=== PATIENT | male | born 1950 | race American Indian/Alaskan Native ===

== ENCOUNTER 2018-10-04 12:07 | Inpatient (IN) | payer MEDICARE ==
--- NOTE | 2018-10-04 12:26 | Emergency Department Report ---
HPI - General Time Seen by Provider: 10/04/18 12:13 - HPI HPI: Room 23 The patient is a 68-year-old male presenting with chief complaint of altered mental status. The patient states his fiance panic after he mentioned seen "little kids" running around the house. Patient attributes the hallucination to him just waking up. Patient denies headache, chest pain shortness breath nausea or vomiting. The fiance is currently not at bedside. Patient states approximately one week ago he was diagnosed with a PE at [facility] and started on anticoagulation the name of which he cannot recall Location: Mental state Duration: [See above] Quality: [See above] Severity: [See above] Modifying factors: [see above] Context: [see above] Mode of transportation: [not driving] ED Past Medical Hx - Past Medical History Hx Pulmonary Embolism: Yes Hx Arthritis: Yes (gout) - Surgical History Past Surgical History?: No - Family History Family history: no significant - Social History Smoking Status: Never Smoker Substance Use Type: None ED Review of Systems ROS: Stated complaint: ALTERED MENTAL STATUS Other details as noted in HPI Constitutional: no symptoms reported Eyes: denies: eye pain ENT: denies: throat pain Respiratory: no symptoms reported Cardiovascular: denies: chest pain Endocrine: no symptoms reported Gastrointestinal: denies: abdominal pain Genitourinary: denies: dysuria Musculoskeletal: denies: back pain Neurological: confusion. denies: headache Physical Exam - Physical Exam Physical Exam: GENERAL: The patient is well-developed well-nourished male sitting on stretcher not appearing to be in acute distress. [] HEENT: Normocephalic. Atraumatic. Extraocular motions are intact. Patient has moist mucous membranes. NECK: Supple. No meningitic signs are noted. Trachea midline CHEST/LUNGS: Clear to auscultation. There is no respiratory distress noted. HEART/CARDIOVASCULAR: Regular. There is tachycardia. There is no gallop rub or murmur. ABDOMEN: Abdomen is soft, nontender. Patient has normal bowel sounds. There is no abdominal distention. SKIN: There is no rash. There is no edema. There is no diaphoresis. NEURO: The patient is awake, alert, and oriented. The patient is cooperative. The patient has no focal neurologic deficits. The patient has normal speech. Cranial nerves II through XII grossly intact, no drift MUSCULOSKELETAL: There is no evidence of acute injury. ED Medical Decision Making - Lab Data Result diagrams: 10/04/18 12:28 10/04/18 12:28 Laboratory Tests 10/04/18 10/04/18 10/04/18 12:16 12:28 12:28 WBC 17.9 H RBC 3.85 Hgb 10.7 L Hct 33.1 L MCV 86 MCH 28 MCHC 33 RDW 19.9 H Plt Count 445 H Lymph % (Auto) 5.3 L [place] % (Auto) 6.2 Eos % (Auto) 0.1 Baso % (Auto) 0.5 Lymph # 1.0 L [place] # 1.1 H Eos # 0.0 Baso # 0.1 Seg Neutrophils % 87.9 H Seg Neutrophils # 15.8 H PT 15.5 H INR 1.16 H APTT 39.5 H Sodium Potassium Chloride Carbon Dioxide Anion Gap BUN Creatinine Estimated GFR BUN/Creatinine Ratio Glucose POC Glucose 78 Lactic Acid Calcium Total Bilirubin AST ALT Alkaline Phosphatase Ammonia Total Creatine Kinase CK-MB (CK-2) CK-MB (CK-2) Rel Index Troponin T Total Protein Albumin Albumin/Globulin Ratio TSH Free T4 Urine Color Urine Turbidity Urine pH Ur Specific Cecil Urine Protein Urine Glucose (UA) Urine Ketones Urine Blood Urine Nitrite Urine Bilirubin Urine Urobilinogen Ur Leukocyte Esterase Urine WBC (Auto) Urine RBC (Auto) U Epithel Cells (Auto) Urine Mucus 10/04/18 10/04/18 10/04/18 12:28 12:28 12:28 WBC RBC Hgb Hct MCV MCH MCHC RDW Plt Count Lymph % (Auto) [place] % (Auto) Eos % (Auto) Baso % (Auto) Lymph # [place] # Eos # Baso # Seg Neutrophils % Seg Neutrophils # PT INR APTT Sodium 134 L Potassium 4.4 Chloride 95.3 L Carbon Dioxide 21 L Anion Gap 22 BUN 18 Creatinine 1.3 Estimated GFR > 60 BUN/Creatinine Ratio 14 Glucose 150 H POC Glucose Lactic Acid Calcium 9.6 Total Bilirubin 1.60 H AST 15 ALT 19 Alkaline Phosphatase 120 Ammonia 37.0 Total Creatine Kinase 58 CK-MB (CK-2) < 1.0 CK-MB (CK-2) Rel Index 1.7 Troponin T < 0.010 Total Protein 7.3 Albumin 3.6 L Albumin/Globulin Ratio 1.0 TSH 3.650 Free T4 1.18 Urine Color Urine Turbidity Urine pH Ur Specific Cecil Urine Protein Urine Glucose (UA) Urine Ketones Urine Blood Urine Nitrite Urine Bilirubin Urine Urobilinogen Ur Leukocyte Esterase Urine WBC (Auto) Urine RBC (Auto) U Epithel Cells (Auto) Urine Mucus 10/04/18 10/04/18 13:04 Unknown WBC RBC Hgb Hct MCV MCH MCHC RDW Plt Count Lymph % (Auto) [place] % (Auto) Eos % (Auto) Baso % (Auto) Lymph # Wright # Eos # Baso # Seg Neutrophils % Seg Neutrophils # PT INR APTT Sodium Potassium Chloride Carbon Dioxide Anion Gap BUN Creatinine Estimated GFR BUN/Creatinine Ratio Glucose POC Glucose Lactic Acid 2.40 H* Calcium Total Bilirubin AST ALT Alkaline Phosphatase Ammonia Total Creatine Kinase CK-MB (CK-2) CK-MB (CK-2) Rel Index Troponin T Total Protein Albumin Albumin/Globulin Ratio TSH Free T4 Urine Color Yellow Urine Turbidity Clear Urine pH 6.0 Ur Specific [place] 1.011 Urine Protein 30 mg/dl Urine Glucose (UA) Neg Urine Ketones Neg Urine Blood Neg Urine Nitrite Neg Urine Bilirubin Neg Urine Urobilinogen 4.0 Ur Leukocyte Esterase Neg Urine WBC (Auto) 3.0 Urine RBC (Auto) 2.0 U Epithel Cells (Auto) 1.0 Urine Mucus Few - EKG Data -: EKG Interpreted by Me EKG shows normal: sinus rhythm Rate: tachycardia (126 bpm) - EKG Data When compared to previous EKG there are: previous EKG unavailable Interpretation: nonspecific ST-T wave quinn (T-wave inversion in lead 3) - Radiology Data Radiology results: report reviewed (CT head), image reviewed (CT head, chest x- ray) interpreted by me: Chest x-ray-no focal infiltrates, no pneumothorax [facility] [address] [place] [address] Cat Scan Report Signed Patient: AVILA MANN MR#: [id number] : 1950 Acct:[id number] Age/Sex: 68 / M ADM Date: 10/04/18 Loc: ED Attending Dr: Ordering Physician: TABBY POE MD Date of Service: 10/04/18 Procedure(s): CT head/brain wo con Accession Number(s): [id number] cc: TABBY POE MD PROCEDURE: CT HEAD/BRAIN WO CON TECHNIQUE: Computerized tomography of the head was performed without contrast material. HISTORY: altered mental status COMPARISONS: None . FINDINGS: Unenhanced CT of the brain was performed and demonstrates no acute intracranial hemorrhage, extra-axial fluid collection, midline shift or mass effect. The ventricles and basal ci sterns are not effaced. The mastoid air cells and middle ears appear clear. There is no evidence of acute sinusitis. The bony calvarium appears intact. IMPRESSION: No acute intracranial hemorrhage This document is electronically signed by Alexis Price MD., October 04 2018 01:56:39 PM ET Transcribed By: BENJAMIN Dictated By: ALEXIS PRICE MD Electronically Authenticated By: ALEXIS PRICE MD Signed Date/Time: 10/04/18 1358 DD/ 1301 TD/TT: 10/04/18 1301 - Differential Diagnosis pneumonia, pyelonephritis, bacteremia, ICH Critical care attestation.: If time is entered above; I have spent that time in minutes in the direct care of this critically ill patient, excluding procedure time. ED Disposition Clinical Impression: Fever, Altered mental status, Leukocytosis Disposition: DC-09 OP ADMIT IP TO THIS HOSP Is pt being admited?: Yes Does the pt Need Aspirin: No Condition: Fair Referrals: MANJIT SLAUGHTER MD [Primary Care Provider] - 3-5 Days Time of Disposition: 14:42 (hospitalist paged (Dr Ford))
[2018-10-04] MEDS ORDERED: TYLENOL PO ONE (12:30)
[2018-10-04] MEDS ORDERED: NACL 0.9% 1000 ML 1,000 ML IV ONE (12:41)
[2018-10-04 12:59] LABS: Basophils # (Auto) 0.1 K/mm3 (0.0-0.1); Basophils % (Auto) 0.5 % (0.0-1.8); Eosinophils % (Auto) 0.1 % (0.0-4.3); Hematocrit 33.1 % (35.5-45.6); Hemoglobin 10.7 gm/dl (11.8-15.2); Lymphocytes % (Auto) 5.3 % (13.4-35.0); Mean Corpuscular HGB Conc 33 % (32-34); Mean Corpuscular Volume 86 fl (84-94); Monocytes # (Auto) 1.1 K/mm3 (0.0-0.8); Monocytes % (Auto) 6.2 % (0.0-7.3); Platelet Count 445 K/mm3 (140-440); Red Blood Count 3.85 M/mm3 (3.65-5.03); Red Cell Distribution Width 19.9 % (13.2-15.2)
[2018-10-04 13:05] LABS: INR 1.16 (0.87-1.13)
[2018-10-04 13:06] LABS: Partial Thromboplastin Time 39.5 Sec. (24.2-36.6)
[2018-10-04 13:10] LABS: Alanine Aminotransferase 19 units/L (7-56); Albumin 3.6 g/dL (3.9-5); BUN/Creatinine Ratio 14; Blood Urea Nitrogen 18 mg/dL (9-20); Calcium 9.6 mg/dL (8.4-10.2); Hemolysis Index 10
[2018-10-04 13:14] LABS: Creatine Kinase MB < 1.0 ng/mL (0.0-4.0)
[2018-10-04 13:15] LABS: Free T4 (Free Thyroxine) 1.18 ng/dL (0.76-1.46)
[2018-10-04] MEDS ORDERED: ZOSYN/NS 4.5GM/100ML 4.5 GM/100 ML VIAL IV ONE (13:54)
--- NOTE | 2018-10-04 13:58 | Cat Scan Report ---
PROCEDURE: CT HEAD/BRAIN WO CON TECHNIQUE: Computerized tomography of the head was performed without contrast material. HISTORY: altered mental status COMPARISONS: None . FINDINGS: Unenhanced CT of the brain was performed and demonstrates no acute intracranial hemorrhage, extra-axial fluid collection, midline shift or mass effect. The ventricles and basal cisterns are no t effaced. The mastoid air cells and middle ears appear clear. There is no evidence of acute sinusitis. The bony calvarium appears intact. IMPRESSION: No acute intracranial hemorrhage This document is electronically signed by Alexis Price MD., October 04 2018 01:56:39 PM ET
[2018-10-04 14:34] LABS: Bilirubin,Urine NEG (Negative); Blood,Urine NEG (Negative); Color,Urine Yellow (Yellow); Mucus,Urine FEW /HPF
--- NOTE | 2018-10-04 14:40 | History and Physical Report ---
History of Present Illness Chief complaint: He's not talking right, and he is confused History of present illness: 68 YO Male with PE on Therapeutic Anticoagulation, OA, Gout presents to ED for evaluation. Pt is confused and talkative but in unable to provide detailed or coherent history. Pt history provided by the who is at bedside during exam and interview. As per , the patient has become progressively weak and confused over the past 3 days. Pt has experienced difficulty speaking over the past 3 days with persistent symptoms over the same time frame, and was found to have visual hallucinations upon waking from sleep this morning around 0700 hrs. EMS notified, and upon arrival the patient was found to be in distress and transported to [facility]. Pt seen and evaluated in ED. Pt exhibits tangential thin lissett during exam as well as work finding difficulty. Pt found to have symptoms consistent with CVA, RLE Cellulitis, SIRS, Acidosis, and Hyponatremia. Pt is outside therapeutic window for TPA at time of presentation. No reports of fever, chills, CP, Palpitations, NVD, Trauma, ingestion of OTC medications, or recent ill contacts. Pt admitted to telemetry and initiated on CVA protocol. Neurology consulted. Past History Past Medical History: pulmonary embolism, other (gout) Past Surgical History: No surgical history, Other (reviewed) Social history: single. denies: smoking, alcohol abuse, prescription drug abuse Family history: hypertension Medications and Allergies Allergies Allergy/AdvReac Type Severity Reaction Status Date / Time No Known Allergies Allergy Unverified 10/04/18 12:16 Review of Systems ROS unobtainable: due to mental status Exam - Constitutional Vitals: Temp Pulse Resp BP Pulse Ox 101.3 F H 130 H 20 121/66 100 10/04/18 12:27 10/04/18 12:27 10/04/18 12:27 10/04/18 12:27 10/04/18 12:22 General appearance: Present: mild distress - EENT Eyes: Present: PERRL ENT: hearing intact, clear oral mucosa - Neck Neck: Present: supple, normal ROM - Respiratory Respiratory effort: normal Respiratory: bilateral: CTA - Cardiovascular Heart Sounds: Present: S1 & S2. Absent: rub, click - Extremities Extremities: pulses symmetrical, No edema Extremity abnormal: erythema, other (RLE erythema, dolor, ) Peripheral Pulses: within normal limits - Abdominal General gastrointestinal: Present: soft, non-tender, non-distended, normal bowel sounds Male genitourinary: Present: normal - Integumentary Integumentary: Present: clear, warm, dry - Musculoskeletal Musculoskeletal: generalized weakness - Psychiatric Psychiatric: no appropriate mood/affect, no intact judgment & insight, no memory intact - Neurologic Neurologic: CNII-XII intact, no focal deficits, moves all extremities, no gait normal Results - Labs CBC & Chem 7: 10/04/18 12:28 10/04/18 12:28 Labs: Abnormal lab results 10/04/18 10/04/18 10/04/18 Range/Units 12:28 12:28 12:28 WBC 17.9 H (4.5-11.0) K/mm3 Hgb 10.7 L (11.8-15.2) gm/dl Hct 33.1 L (35.5-45.6) % RDW 19.9 H (13.2-15.2) % Plt Count 445 H (140-440) K/mm3 Lymph % (Auto) 5.3 L (13.4-35.0) % Lymph # 1.0 L (1.2-5.4) K/mm3 [place] # 1.1 H (0.0-0.8) K/mm3 Seg Neutrophils % 87.9 H (40.0-70.0) % Seg Neutrophils # 15.8 H (1.8-7.7) K/mm3 PT 15.5 H (12.2-14.9) Sec. INR 1.16 H (0.87-1.13) APTT 39.5 H (24.2-36.6) Sec. Sodium 134 L (137-145) mmol/L Chloride 95.3 L (98-107) mmol/L Carbon Dioxide 21 L (22-30) mmol/L Glucose 150 H (75-100) mg/dL Lactic Acid (0.7-2.0) mmol/L Total Bilirubin 1.60 H (0.1-1.2) mg/dL Albumin 3.6 L (3.9-5) g/dL 10/04/18 Range/Units 13:04 WBC (4.5-11.0) K/mm3 Hgb (11.8-15.2) gm/dl Hct (35.5-45.6) % RDW (13.2-15.2) % Plt Count (140-440) K/mm3 Lymph % (Auto) (13.4-35.0) % Lymph # (1.2-5.4) K/mm3 [place] # (0.0-0.8) K/mm3 Seg Neutrophils % (40.0-70.0) % Seg Neutrophils # (1.8-7.7) K/mm3 PT (12.2-14.9) Sec. INR (0.87-1.13) APTT (24.2-36.6) Sec. Sodium (137-145) mmol/L Chloride (98-107) mmol/L Carbon Dioxide (22-30) mmol/L Glucose (75-100) mg/dL Lactic Acid 2.40 H* (0.7-2.0) mmol/L Total Bilirubin (0.1-1.2) mg/dL Albumin (3.9-5) g/dL Assessment and Plan - Patient Problems (1) CVA (cerebral vascular accident) Current Visit: Yes Status: Acute Qualifiers: Laterality of affected vessel: unspecified Plan to address problem: CVA Protocol: Admit to telemetry, CT head, MRI Brain/MRA Brain, Echo, Carotid doppler, Antiplatelet therapy, PT/OT/ Speech therapy, Case management consult fo r D/C planning/Placement, lipid panel, statin therapy. (2) Cellulitis of right lower extremity Current Visit: Yes Status: Acute Plan to address problem: IV antibiotic therapy, CBC, CMP, (3) SIRS (systemic inflammatory response syndrome) Current Visit: Yes Status: Acute Plan to address problem: IV antibiotic therapy, CBC, CMP, Chest x ray, urinalysis, (4) Pulmonary embolus Current Visit: Yes Status: Acute Qualifiers: Chronicity: unspecified Acute cor pulmonale presence: without acute cor pulmonale Plan to address problem: Continue therapeutic anticoagulation, No respiratory distress at time of exam. (5) Acidosis Current Visit: Yes Status: Acute (6) Hyponatremia syndrome Current Visit: Yes Status: Acute Plan to address problem: IVF resuscitation therapy, repeat bmp in AM. (7) DVT prophylaxis Current Visit: Yes Status: Acute Plan to address problem: SCD to BLE while in bed, continue therapeutic anticoagulation.
--- NOTE | 2018-10-04 15:04 | XRay Report ---
PROCEDURE: XR CHEST 1V AP TECHNIQUE: Chest radiograph single view. HISTORY: fever COMPARISONS: None . FINDINGS: Heart: Magnified due to projection, appear to be upper normal size. Mediastinum/Vessels: Normal. Lungs/Pleural space: Clear.. Bony thorax: No acute osseous abnormality. Life support devices: None. IMPRESSION: No acute cardiopulmonary abnormality. This document is electronically signed by Tarik Urias MD., October 04 2018 03:03:18 PM ET
[2018-10-04] MEDS ORDERED: PHENERGAN PR PRN (15:59)
[2018-10-04] MEDS ORDERED: DULCOLAX PR PRN (15:59)
[2018-10-04] MEDS ORDERED: REGLAN PO PRN (15:59)
[2018-10-04] MEDS ORDERED: MILK OF MAGNESIA PO PRN (15:59)
[2018-10-04] MEDS: LEVAQUIN 750MG/150ML 750 MG/150 ML BAG IV SCH (16:00)
[2018-10-04] MEDS ORDERED: VANCOMYCIN 1,750 MG in NACL 0.9% 500 ML 500 ML IV ONE (16:05)
[2018-10-04] MEDS ORDERED: VANCOMYCIN PHARMACY TO DOSE IV SCH (17:00)
--- NOTE | 2018-10-04 17:11 | Vascular Lab Report ---
PROCEDURE: VL CAROTID DUPLEX BILAT TECHNIQUE: Duplex Doppler ultrasound of the common, internal and external carotid arteries and the v ertebral arteries was performed bilaterally. Santana scale imaging, velocity spectral waveform analysis, and color flow Doppler were employed. HISTORY: stroke COMPARISONS: None . Note: Measurement of carotid stenosis is based on flow velocity values that correlate with the [place] Symptomatic Carotid Endarterectomy Trial (NASCET) based stenosis criteria using the internal carotid artery diameter as the denominator for stenosis calculation. FINDINGS: RIGHT carotid artery: Velocities: ICA PSV: 85 cm/sec ICA End diastolic: 30 cm/sec CCA PSV: 92 cm/sec IC/CC ratio: 0.92 Plaque: None. RIGHT vertebral artery: Antegrade systolic and diastolic flow LEFT carotid artery: Velocities: ICA PSV: 100 cm/sec ICA End diastolic: 35 cm/sec CCA PSV: 100 cm/sec IC/CC ratio: 1 Plaque: none. LEFT vertebral artery: Antegrade systolic and diastolic flow IMPRESSION: 1. RIGHT carotid: No hemodynamically significant internal carotid artery stenosis. 2. LEFT carotid: No hemodynamically significant internal carotid stenosis. 3. Vertebral arteries: Bilaterally antegrade. This document is electronically signed by Mukesh Iraheta MD., October 04 2018 05:09:20 PM ET
[2018-10-04] MEDS ORDERED: LEVAQUIN 750MG/150ML 750 MG/150 ML BAG IV ONE (18:08)
[2018-10-04] MEDS: TYLENOL PO PRN (22:47)
[2018-10-04] MEDS: ZOFRAN IV PRN (22:48)
[2018-10-05] MEDS: TYLENOL PO PRN (05:27)
[2018-10-05] MEDS: ZOFRAN IV PRN (05:27)
[2018-10-05] MEDS ORDERED: ASPIRIN PO SCH (10:00)
--- NOTE | 2018-10-05 11:46 | Progress Note ---
Assessment and Plan / Acute encephalopathy suspected acute CVA on admission cont CVA Protocol: monitor telemetry, ordered CT head, MRI Brain/MRA Brain, Echo, Carotid doppler, Antiplatelet therapy, PT/OT/ Speech therapy, Case management consult for D/C planning/Placement, lipid panel, statin therapy. /Acute gout start on clochicine, po steroid /SIRS (systemic inflammatory response syndrome) likely from acute gout IV antibiotic therapy for now, follow blood cx /h/o Pulmonary embolus Continue therapeutic anticoagulation, No respiratory distress at time of exam. / Hyponatremia IVF resuscitation therapy, repeat bmp in AM. / DVT prophylaxis SCD to BLE while in bed, continue therapeutic anticoagulation. Brief History: This is a 68 YO M with h/o gout, recent dx of PE who presented tot he ED after his found him to be confused and hallucinating. He was admitted with stroke protocol. His mental status now at baseline. c/o b/l knee pain. Subjective Date of service: 10/05/18 Interval history: Patient seen and examined c/o b/l Knee pain tolerating diet PT eval/MRI brain pending Objective - Constitutional Vitals: Vital Signs - 12hr 10/05/18 10/05/18 00:26 04:20 Temperature 99.0 F Pulse Rate 110 H 103 H Respiratory 20 Rate Blood Pressure 148/65 O2 Sat by Pulse 97 Oximetry General appearance: Present: no acute distress, well-nourished - EENT Eyes: PERRL, EOM intact ENT: hearing intact, clear oral mucosa Ears: bilateral: normal - Neck Neck: supple, normal ROM - Respiratory Respiratory effort: normal Respiratory: bilateral: CTA - Cardiovascular Rhythm: regular Heart Sounds: Present: S1 & S2. Absent: gallop, rub Extremities: pulses intact, No edema, normal color, Full ROM - Gastrointestinal General gastrointestinal: Present: soft, non-tender, non-distended, normal bowel sounds - Integumentary Integumentary: clear, warm, dry - Musculoskeletal Musculoskeletal: generalized weakness, other (b/l knee tenderness) - Neurologic Neurologic: CNII-XII intact, other (limited movement to b/l LE) - Psychiatric Psychiatric: cooperative - Allied health notes Allied health notes reviewed: nursing - Labs CBC & Chem 7: 10/05/18 14:51 10/05/18 14:51 Labs: Abnormal lab results 10/04/18 10/04/1819 Range/Units 12:28 12:28 12:28 WBC 17.9 H (4.5-11.0) K/mm3 Hgb 10.7 L (11.8-15.2) gm/dl Hct 33.1 L (35.5-45.6) % RDW 19.9 H (13.2-15.2) % Plt Count 445 H (140-440) K/mm3 Lymph % (Auto) 5.3 L (13.4-35.0) % Lymph # 1.0 L (1.2-5.4) K/mm3 [place] # 1.1 H (0.0-0.8) K/mm3 Seg Neutrophils % 87.9 H (40.0-70.0) % Seg Neutrophils # 15.8 H (1.8-7.7) K/mm3 PT 15.5 H (12.2-14.9) Sec. INR 1.16 H (0.87-1.13) APTT 39.5 H (24.2-36.6) Sec. Sodium 134 L (137-145) mmol/L Chloride 95.3 L (98-107) mmol/L Carbon Dioxide 21 L (22-30) mmol/L Glucose 150 H (75-100) mg/dL Lactic Acid (0.7-2.0) mmol/L Total Bilirubin 1.60 H (0.1-1.2) mg/dL Albumin 3.6 L (3.9-5) g/dL 10/04/18 Range/Units 13:04 WBC (4.5-11.0) K/mm3 Hgb (11.8-15.2) gm/dl Hct (35.5-45.6) % RDW (13.2-15.2) % Plt Count (140-440) K/mm3 Lymph % (Auto) (13.4-35.0) % Lymph # (1.2-5.4) K/mm3 [place] # (0.0-0.8) K/mm3 Seg Neutrophils % (40.0-70.0) % Seg Neutrophils # (1.8-7.7) K/mm3 PT (12.2-14.9) Sec. INR (0.87-1.13) APTT (24.2-36.6) Sec. Sodium (137-145) mmol/L Chloride (98-107) mmol/L Carbon Dioxide (22-30) mmol/L Glucose (75-100) mg/dL Lactic Acid 2.40 H* (0.7-2.0) mmol/L Total Bilirubin (0.1-1.2) mg/dL Albumin (3.9-5) g/dL - Imaging and cardiology Chest x-ray: report reviewed CT Scan - head: report reviewed
[2018-10-05] MEDS: LEVAQUIN 750MG/150ML 750 MG/150 ML BAG IV SCH (12:53)
[2018-10-05] MEDS ORDERED: K-DUR PO SCH (15:00)
[2018-10-05 15:06] LABS: Hematocrit 28.6 % (35.5-45.6); Hemoglobin 9.4 gm/dl (11.8-15.2); Mean Corpuscular HGB Conc 33 % (32-34); Mean Corpuscular Volume 86 fl (84-94); Platelet Count 401 K/mm3 (140-440); Red Blood Count 3.33 M/mm3 (3.65-5.03); Red Cell Distribution Width 19.8 % (13.2-15.2)
[2018-10-05] MEDS: NON-FORMULARY (Lisinopril [Zestril Tab] 2.5 MG) PO SCH (15:21)
[2018-10-05 15:26] LABS: BUN/Creatinine Ratio 11; Blood Urea Nitrogen 16 mg/dL (9-20); Calcium 9.3 mg/dL (8.4-10.2); Hemolysis Index 44
[2018-10-05] MEDS: PERCOCET 5/325 PO PRN ×2 (16:05→22:51)
[2018-10-05] MEDS: ZYLOPRIM PO SCH (16:07)
[2018-10-05] MEDS: DELTASONE PO SCH (16:15)
[2018-10-05] MEDS: VANCOMYCIN 1,500 MG in NACL 0.9% 500 ML 500 ML IV SCH (19:20)
[2018-10-05] MEDS: COLCHICINE PO SCH (22:41)
[2018-10-05] MEDS: SODIUM CHLORIDE FLUSH SYRINGE 10 ML IV PRN (22:45)
[2018-10-06] MEDS: PERCOCET 5/325 PO PRN ×3 (06:42→21:25)
[2018-10-06] MEDS: ASPIRIN PO SCH (09:27)
[2018-10-06] MEDS: COLCHICINE PO SCH ×2 (09:27→21:25)
[2018-10-06] MEDS: LEVAQUIN 750MG/150ML 750 MG/150 ML BAG IV SCH (09:27)
[2018-10-06] MEDS: LASIX PO SCH (09:27)
[2018-10-06] MEDS: ZYLOPRIM PO SCH (09:28)
[2018-10-06] MEDS: PROTONIX PO SCH (09:28)
[2018-10-06] MEDS: DELTASONE PO SCH (09:28)
[2018-10-06] MEDS: XARELTO PO SCH (09:28)
[2018-10-06] MEDS: K-DUR PO SCH (09:28)
[2018-10-06] MEDS: NON-FORMULARY (Lisinopril [Zestril Tab] 2.5 MG) PO SCH (09:28)
[2018-10-06] MEDS ORDERED: NON-FORMULARY (Potassium 10 MEQ) PO SCH (10:00)
[2018-10-06] MEDS ORDERED: XARELTO PO SCH (10:00)
--- NOTE | 2018-10-06 17:17 | Progress Note ---
Assessment and Plan / Acute encephalopathy suspected acute CVA on admission Admitted with CVA Protocol: monitor telemetry, ordered CT head, MRI Brain/MRA Brain, Echo, Carotid doppler, Antiplatelet therapy, PT/OT/ Speech therapy, Case management consult for D/C planning/Placement, lipid panel, statin therapy. Pending MRI brain and neuro eval PT recommended ANGELIC /Acute gout started on clochicine, po steroid ordered b/l knee xry /SIRS (systemic inflammatory response syndrome) likely from acute gout negative blood cx, will stop iv abx /h/o Pulmonary embolus Continue therapeutic anticoagulation with xarelto, No respiratory distress at time of exam. / Hyponatremia s/p IVF resuscitation therapy, resolved / DVT prophylaxis SCD to BLE while in bed, continue therapeutic anticoagulation. Brief History: This is a 68 YO M with h/o gout, recent dx of PE who presented tot he ED after his found him to be confused and hallucinating. He was admitted with stroke protocol. His mental status now at baseline. c/o b/l knee pain, being treated for gout. Subjective Date of service: 10/06/18 Interval history: Patient seen and examined continue to c/o b/l Knee pain tolerating diet Neuro eval/MRI brain pending PT recommended ANGELIC Objective - Exam Narrative Exam: General appearance: Present: no acute distress, well-nourished - EENT Eyes: PERRL, EOM intact ENT: hearing intact, clear oral mucosa Ears: bilateral: normal - Neck Neck: supple, normal ROM - Respiratory Respiratory effort: normal Respiratory: bilateral: CTA - Cardiovascular Rhythm: regular Heart Sounds: Present: S1 & S2. Absent: gallop, rub Extremities: pulses intact, No edema, normal color, - Gastrointestinal General gastrointestinal: Present: soft, non-tender, non-distended, normal bowel sounds - Integumentary Integumentary: clear, warm, dry - Musculoskeletal Musculoskeletal: generalized weakness, other (b/l knee tenderness) - Neurologic Neurologic: CNII-XII intact, other (limited movement to b/l LE) - Psychiatric Psychiatric: cooperative - Allied health notes Allied health notes reviewed: nursing - Constitutional Vitals: Vital Signs - 12hr 10/06/18 10/06/18 10/06/18 06:15 08:04 12:14 Temperature 98.4 F 98.4 F 98.3 F Pulse Rate 85 84 74 Respiratory 20 18 18 Rate Blood Pressure 115/67 124/62 Blood Pressure 132/67 [Left] O2 Sat by Pulse 99 99 Oximetry - Labs CBC & Chem 7: 10/05/18 14:51 10/05/18 14:51
[2018-10-06] MEDS: VANCOMYCIN 1,500 MG in NACL 0.9% 500 ML 500 ML IV SCH (17:41)
--- NOTE | 2018-10-06 18:01 | Magnetic Resonance Report ---
PROCEDURE: MR BRAIN WO CON TECHNIQUE: Magnetic resonance imaging of the brain was performed without contrast material. HISTORY: Stroke symptoms COMPARISONS: CT 10/04/2018 . FINDINGS: There is no restricted diffusion to suggest acute infarction. Midline structures including the sella are unremarkable. No signal dropout is seen on gradient echo images. There is no evidence of hydrocep halus or abnormal extra-axial fluid collection. Minimal white matter high T2 signal lesions are seen to suggest chronic microvascular ischemic changes. No evidence of intracranial mass. Paranasal sinuse s and mastoids are aerated. Globes and orbits are unremarkable in appearance. IMPRESSION: No evidence of acute infarction. Minimal chronic microvascular ischemic changes . This document is electronically signed by Nohelia Licea MD., October 06 2018 05:58:57 PM ET
--- NOTE | 2018-10-06 18:08 | Magnetic Resonance Report ---
PROCEDURE: MR MRA/MRV HEAD WO CON TECHNIQUE: Axial 3-D [id number] MR angiography of the [place] and brain was performed. The source images were reconstructed in various views using maximum intensity projection. HISTORY: Stroke symptoms COMPARISONS: None . FINDINGS: Vertebral arteries: There is a dominant right vertebral artery, with a hypoplastic distal left verte bral artery. Basilar artery: Normal . Internal carotid arteries: Normal . Anterior cerebral arteries: Normal . Middle cerebral arteries: Normal . Posterior cerebral arteries: Normal . Branch occlusions: None . Vascular malformations: None . IMPRESSION: No arterial occlusion or significant stenosis . There is a dominant right vertebral adalgisa ry, with a hypoplastic distal left vertebral artery, likely a developmental finding. This document is electronically signed by Nohelia Licea MD., October 06 2018 06:06:40 PM ET
--- NOTE | 2018-10-06 18:16 | Consultation ---
History of Present Illness Consult date: 10/06/18 Chief complaint: AMS History of present illness: This is a 68 YO M who presented tot he ED after his found him to be confused and hallucinating. No family is at the bedside. Pt says he is back to himself. Alightly irritable but this may be his baseline. Able to give me some history. AOX4. Past History Past Medical History: pulmonary embolism, other (gout) Past Surgical History: No surgical history, Other (reviewed) Social history: single. denies: smoking, alcohol abuse, prescription drug abuse Family history: hypertension Medications and Allergies Allergies Allergy/AdvReac Type Severity Reaction Status Date / Time No Known Allergies Allergy Unverified 10/04/18 12:16 Home Medications Medication Instructions Recorded Confirmed Last Taken Type Allopurinol [Zyloprim] 300 mg PO QDAY 10/04/18 10/04/18 Unknown History Furosemide [Lasix] 20 mg PO DAILY 10/04/18 10/04/18 Unknown History Indomethacin [Indocin] 25 mg PO BID 10/04/18 10/04/18 Unknown History Lisinopril [Zestril TAB] 2.5 mg PO QDAY 10/04/18 10/04/18 Unknown History Pantoprazole [Protonix] 40 mg PO QDAY 10/04/18 10/04/18 Unknown History Potassium 10 meq PO DAILY 10/04/18 10/04/18 Unknown History Rivaroxaban [Xarelto] 20 mg PO QDAY 10/04/18 10/04/18 Unknown History predniSONE [Prednisone] 5 mg PO DAILY 10/04/18 10/04/18 Unknown History Active Meds: Active Medications Acetaminophen (Tylenol) 650 mg PO Q4H PRN PRN Reason: Pain, Mild (1-3) Last Admin: 10/05/18 05:27 Dose: 650 mg Documented by: Allopurinol (Zyloprim) 300 mg PO QDAY [facility] Last Admin: 10/06/18 09:28 Dose: 300 mg Documented by: Aspirin (Aspirin) 81 mg PO QDAY [facility] Last Admin: 10/06/18 09:27 Dose: 81 mg Documented by: Atorvastatin Calcium (Lipitor) 40 mg PO QHS [facility] Last Admin: 10/05/18 22:42 Dose: 40 mg Documented by: Bisacodyl (Dulcolax) 10 mg ND QDAY PRN PRN Reason: Constipation Colchicine (Colchicine) 0.6 mg PO BID [facility] Last Admin: 10/06/18 09:27 Dose: 0.6 mg Documented by: Furosemide (Lasix) 20 mg PO DAILY [facility] Last Admin: 10/06/18 09:27 Dose: 20 mg Documented by: Levofloxacin/Dextrose (Levaquin 750mg/150ml) 750 mg in 150 mls @ 100 mls/hr IV Q24HR [facility]; Protocol Last Admin: 10/06/18 09:27 Dose: 100 mls/hr Documented by: Vancomycin HCl 1,500 mg/ (Sodium Chloride) 530 mls @ 333.333 mls/hr IV Q24H [facility] Last Admin: 10/06/18 17:41 Dose: 333.333 mls/hr Documented by: Lisinopril (Zestril) 2.5 mg PO QDAY [facility] Magnesium Hydroxide (Milk Of Magnesia) 30 ml PO Q4H PRN PRN Reason: Constipation Metoclopramide HCl (Reglan) 10 mg PO Q6H PRN PRN Reason: Nausea And Vomiting Ondansetron HCl (Zofran) 4 mg IV Q8H PRN PRN Reason: Nausea And Vomiting Last Admin: 10/05/18 05:27 Dose: 4 mg Documented by: Oxycodone/Acetaminophen (Percocet 5/325) 1 tab PO Q6H PRN PRN Reason: Pain, Moderate (4-6) Last Admin: 10/06/18 13:55 Dose: 1 tab Documented by: Pantoprazole Sodium (Protonix) 40 mg PO QDAY [facility] Last Admin: 10/06/18 09:28 Dose: 40 mg Documented by: Potassium Chloride (K-Dur) 10 meq PO QDAY [facility] Last Admin: 10/06/18 09:28 Dose: 10 meq Documented by: Prednisone (Deltasone) 20 mg PO DAILY [facility] Last Admin: 10/06/18 09:28 Dose: 20 mg Documented by: Promethazine HCl (Phenergan) 25 mg ND Q6H PRN PRN Reason: Nausea And Vomiting Rivaroxaban (Xarelto) 20 mg PO QDAY [facility]; Protocol Last Admin: 10/06/18 09:28 Dose: 20 mg Documented by: Sodium Chloride (Sodium Chloride Flush Syringe 10 Ml) 10 ml IV PRN PRN PRN Reason: LINE FLUSH Last Admin: 10/05/18 22:45 Dose: 10 ml Documented by: Review of Systems Psychiatric: hallucinations, irritability Physical Examination - Vital Signs Vital Signs: Vital Signs Pulse Resp 132 H 14 10/04/18 12:14 10/04/18 12:14 - Constitutional General appearance: comfortable - EENT EENT: Present: PERRL, mucous membranes moist - Respiratory Respiratory: Present: lungs clear, normal breath sounds - Cardiovascular Cardiovascular: Present: regular rate - Gastrointestinal Gastrointestinal: Present: normoactive bowel sounds - Integumentary Integumentary: Present: normal - Neurologic Cranial nerve examination: PERRL, EOMI, V1/V2/V3 grossly intact, face symmetric, tongue midline Motor examination - right side: 5/5: biceps, triceps, wrist flexion, wrist extension, refrigeration operator, hip flexors, knee extensors, dorsiflexion, toe extension (EHL), plantarflexion Motor examination - left side: 5/5: biceps, triceps, wrist flexion, wrist extension, refrigeration operator, hip flexors, knee extensors, dorsiflexion, toe extension (EHL), plantarflexion Detailed sensory examination: light touch, temperature Reflexes: 1+: ankle, bicep, knee, tricep - Psychiatric Psychiatric: Present: other (irritable) Results - Laboratory Findings CBC and BMP: 10/05/18 14:51 10/05/18 14:51 Abnormal Lab Findings: Abnormal Labs 10/04/18 10/04/18 10/04/18 12:28 12:28 12:28 WBC 17.9 H RBC Hgb 10.7 L Hct 33.1 L RDW 19.9 H Plt Count 445 H Lymph % (Auto) 5.3 L Lymph # 1.0 L [place] # 1.1 H Seg Neutrophils % 87.9 H Seg Neutrophils # 15.8 H PT 15.5 H INR 1.16 H APTT 39.5 H Sodium 134 L Chloride 95.3 L Carbon Dioxide 21 L Glucose 150 H Lactic Acid Total Bilirubin 1.60 H Albumin 3.6 L 10/04/18 10/05/18 10/05/18 13:04 14:51 14:51 WBC 11.2 H RBC 3.33 L Hgb 9.4 L Hct 28.6 L RDW 19.8 H Plt Count Lymph % (Auto) Lymph # [place] # Seg Neutrophils % Seg Neutrophils # PT INR APTT Sodium Chloride Carbon Dioxide Glucose 114 H Lactic Acid 2.40 H* Total Bilirubin Albumin - Diagnostic Findings Additional findings: MRI Brain- no acute ischemia Assessment and Plan This is a 68 YO M with likely metabolic encephalopathy secondary to his medical issues, improving Recommend: Continue care for all medical issues as you are doing Suspect that his mentation wi ll continue to clear as his medical condition improves. No further work up recommended. Call with questions.
--- NOTE | 2018-10-07 08:19 | XRay Report ---
XRAY BILATERAL KNEE THREE VIEWS EACH: 10/07/18 CLINICAL: Pain. FINDINGS: Right: Moderate osteoarthritis involving both medial and lateral joints and more severe osteoarthritis of the patellofemoral joint. No fracture or dislocation. Mild opacification of the suprapatellar fat suggesting a small joint effusion. Mild prepatellar soft tissue swelling. Left: Moderate osteoarthritis involving the medial and lateral joints and more severe osteoarthritis of the patellofemoral joint. No joint effusion. No fracture or dislocation. Mildprepatellar soft tissue swelling. IMPRESSION: Moderately severe bilateral osteoarthritis and mild nonspecific prepatellar soft tissue swelling.Suspect a small right knee joint effusion.
[2018-10-07] MEDS: COLCHICINE PO SCH ×2 (09:50→21:09)
[2018-10-07] MEDS: ASPIRIN PO SCH (09:50)
[2018-10-07] MEDS: XARELTO PO SCH (09:51)
[2018-10-07] MEDS: K-DUR PO SCH (09:51)
[2018-10-07] MEDS: ZYLOPRIM PO SCH (09:51)
[2018-10-07] MEDS: DELTASONE PO SCH (09:51)
[2018-10-07] MEDS: PROTONIX PO SCH (09:51)
[2018-10-07] MEDS: LASIX PO SCH (09:51)
[2018-10-07] MEDS ORDERED: ZESTRIL PO SCH (10:00)
--- NOTE | 2018-10-07 13:53 | Progress Note ---
Assessment and Plan / Acute encephalopathy suspected acute CVA on admission Admitted with CVA Protocol: monitor telemetry, ordered CT head, MRI Brain/MRA Brain, Echo, Carotid doppler, Antiplatelet therapy, PT/OT/ Speech therapy, Case management consult for D/C planning/Placement, lipid panel, statin therapy. MRI brain showed no acute CVA , neuro recommended medical Mx PT recommended ANGELIC /Acute gout ? started on clochicine, po steroid ordered b/l knee xry - showed moderate to severe osteoarthritis /SIRS (systemic inflammatory response syndrome) likely from acute gout negative blood cx, will stop iv abx /h/o Pulmonary embolus Continue therapeutic anticoagulation with xarelto, No respiratory distress at time of exam. / Hyponatremia s/p IVF resuscitation therapy, resolved / DVT prophylaxis SCD to BLE while in bed, continue therapeutic anticoagulation. Brief History: This is a 68 YO M with h/o gout, recent dx of PE who presented tot he ED after his found him to be confused and hallucinating. He was admitted with stroke protocol. His mental status now at baseline. c/o b/l knee pain, being treated for gout. Subjective Date of service: 10/07/18 Interval history: Patient seen and examined continue to c/o b/l Knee pain tolerating diet No acute finding on MRI brain PT recommended ANGELIC Objective - Exam Narrative Exam: General appearance: Present: no acute distress, well-nourished - EENT Eyes: PERRL, EOM intact ENT: hearing intact, clear oral mucosa Ears: bilateral: normal - Neck Neck: supple, normal ROM - Respiratory Respiratory effort: normal Respiratory: bilateral: CTA - Cardiovascular Rhythm: regular Heart Sounds: Present: S1 & S2. Absent: gallop, rub Extremities: pulses intact, No edema, normal color, - Gastrointestinal General gastrointestinal: Present: soft, non-tender, non-distended, normal bowel sounds - Integumentary Integumentary: clear, warm, dry - Musculoskeletal Musculoskeletal: generalized weakness, other (b/l knee tenderness) - Neurologic Neurologic: CNII-XII intact, other (limited movement to b/l LE) - Psychiatric Psychiatric: cooperative - Allied health notes Allied health notes reviewed: nursing - Constitutional Vitals: Vital Signs - 12hr 10/07/18 10/07/18 10/07/18 05:17 08:00 08:42 Temperature 98.6 F 98.4 F Pulse Rate 78 81 78 Pulse Rate [ Apical] Respiratory 20 20 Rate Blood Pressure 133/73 159/73 O2 Sat by Pulse 97 99 Oximetry 10/07/18 11:00 Temperature Pulse Rate Pulse Rate [ 81 Apical] Respiratory 14 Rate Blood Pressure O2 Sat by Pulse 99 Oximetry - Labs CBC & Chem 7: 10/05/18 14:51 10/05/18 14:51
[2018-10-07] MEDS: PERCOCET 5/325 PO PRN (17:23)
[2018-10-08 07:00] LABS: Basophils % (Auto) 0.3 % (0.0-1.8); Eosinophils # (Auto) 0.1 K/mm3 (0.0-0.4); Eosinophils % (Auto) 0.6 % (0.0-4.3); Hemoglobin 8.9 gm/dl (11.8-15.2); Lymphocytes # (Auto) 1.8 K/mm3 (1.2-5.4); Lymphocytes % (Auto) 18.3 % (13.4-35.0); Mean Corpuscular HGB Conc 33 % (32-34); Mean Corpuscular Volume 85 fl (84-94); Monocytes # (Auto) 0.9 K/mm3 (0.0-0.8); Monocytes % (Auto) 9.6 % (0.0-7.3); Platelet Count 546 K/mm3 (140-440); Red Blood Count 3.17 M/mm3 (3.65-5.03); Red Cell Distribution Width 19.6 % (13.2-15.2)
[2018-10-08] MEDS: COLCHICINE PO SCH ×2 (09:42→23:01)
[2018-10-08] MEDS: NORVASC PO SCH (09:42)
[2018-10-08] MEDS: LASIX PO SCH (09:42)
[2018-10-08] MEDS: K-DUR PO SCH (09:42)
[2018-10-08] MEDS: XARELTO PO SCH (09:42)
[2018-10-08] MEDS: ZYLOPRIM PO SCH (09:43)
[2018-10-08] MEDS: ASPIRIN PO SCH (09:43)
[2018-10-08] MEDS: DELTASONE PO SCH (09:43)
[2018-10-08] MEDS: PROTONIX PO SCH (09:43)
[2018-10-08] MEDS: PERCOCET 5/325 PO PRN ×3 (09:45→23:05)
--- NOTE | 2018-10-08 13:34 | Progress Note ---
Assessment and Plan / Acute encephalopathy suspected acute CVA on admission Admitted with CVA Protocol: monitor telemetry, ordered CT head, MRI Brain/MRA Brain, Echo, Carotid doppler, Antiplatelet therapy, PT/OT/ Speech therapy, Case management consult for D/C planning/Placement, lipid panel, statin therapy. MRI brain showed no acute CVA , neuro recommended medical Mx PT recommended ANGELIC /Acute gout ? Osteoarthritis of b/l Knee started on clochicine, po steroid - will reduce dose ordered b/l knee xry - showed moderate to severe osteoarthritis /SIRS (systemic inflammatory response syndrome) likely from acute gout negative blood cx, off iv abx /h/o Pulmonary embolus Continue therapeutic anticoagulation with xarelto, No respiratory distress at time of exam. / Hyponatremia s/p IVF resuscitation therapy, resolved / DVT prophylaxis SCD to BLE while in bed, continue therapeutic anticoagulation. Brief History: This is a 68 YO M with h/o gout, recent dx of PE who presented tot he ED after his found him to be confused and hallucinating. He was admitted with stroke protocol. His mental status now at baseline. c/o b/l knee pain, being treated for gout. Subjective Date of service: 10/08/18 Interval history: Patient seen and examined continue to c/o b/l Knee pain tolerating diet No acute finding on MRI brain PT recommended ANGELIC Objective - Exam Narrative Exam: General appearance: Present: no acute distress, well-nourished - EENT Eyes: PERRL, EOM intact ENT: hearing intact, clear oral mucosa Ears: bilateral: normal - Neck Neck: supple, normal ROM - Respiratory Respiratory effort: normal Respiratory: bilateral: CTA - Cardiovascular Rhythm: regular Heart Sounds: Present: S1 & S2. Absent: gallop, rub Extremities: pulses intact, No edema, normal color, - Gastrointestinal General gastrointestinal: Present: soft, non-tender, non-distended, normal bowel sounds - Integumentary Integumentary: clear, warm, dry - Musculoskeletal Musculoskeletal: generalized weakness, other (b/l knee tenderness) - Neurologic Neurologic: CNII-XII intact, other (limited movement to b/l LE) - Psychiatric Psychiatric: cooperative - Allied health notes Allied health notes reviewed: nursing - Constitutional Vitals: Vital Signs - 12hr 10/08/18 10/08/18 10/08/18 03:51 08:39 09:42 Temperature 98.7 F 98.7 F Pulse Rate 88 83 83 Respiratory 12 18 Rate Blood Pressure 146/92 140/85 140/85 O2 Sat by Pulse 99 97 Oximetry - Labs CBC & Chem 7: 10/08/18 06:00 10/05/18 14:51 Labs: Abnormal lab results 10/08/18 Range/Units 06:00 RBC 3.17 L (3.65-5.03) M/mm3 Hgb 8.9 L (11.8-15.2) gm/dl Hct 27.0 L (35.5-45.6) % RDW 19.6 H (13.2-15.2) % Plt Count 546 H (140-440) K/mm3 [place] % (Auto) 9.6 H (0.0-7.3) % [place] # 0.9 H (0.0-0.8) K/mm3 Seg Neutrophils % 71.2 H (40.0-70.0) %
[2018-10-08] MEDS ORDERED: DELTASONE PO SCH (23:32)
[2018-10-09] MEDS: K-DUR PO SCH (08:59)
[2018-10-09] MEDS: COLCHICINE PO SCH (08:59)
[2018-10-09] MEDS: ZYLOPRIM PO SCH (08:59)
[2018-10-09] MEDS: LASIX PO SCH (09:00)
[2018-10-09] MEDS: SODIUM CHLORIDE FLUSH SYRINGE 10 ML IV PRN (09:00)
[2018-10-09] MEDS: NORVASC PO SCH (09:00)
[2018-10-09] MEDS: PROTONIX PO SCH (09:02)
[2018-10-09] MEDS: XARELTO PO SCH (09:42)
[2018-10-09] MEDS ORDERED: HALFPRIN EC PO SCH (10:00)
--- NOTE | 2018-10-09 13:41 | Discharge Summary ---
Providers - Providers Date of Admission: 10/04/18 16:20 Date of discharge: 10/09/18 Attending physician: ASHLI MALDONADO 10/04/18 15:59 Consult to Case Management [CONS] Routine Services Needed at Discharge: Other Notified:: pillowcase sewer Additional Physician Instructions: D/C Planning for SNF/Rehab placement Occupational Therapy Evaluate and Treat [CONS] Routine Comment: Reason For Exam: Neuro deficits Physical Therapy Evaluation and Treat [CONS] Routine Comment: Reason For Exam: Neuro deficits 10/04/18 16:00 Speech Therapy Evaluation and Treat [CONS] Routine Reason For Exam: swallow eval 10/06/18 07:00 Consult to Physician [CONS] Routine Comment: change consult to Dr Jose Guadalupe Marcelino Consulting Provider: CASANDRA SEVILLA Physician Instructions: Reason For Exam: confusion Primary care physician: MANJIT SLAUGHTER MD Hospitalization Condition: Fair Pertinent studies: Head CT Brain MRI/MRA Knee XRY Carotid doppler US Hospital course: Brief History: This is a 68 YO M with h/o gout, recent dx of PE who presented tot he ED after his found him to be confused and hallucinating. He was admitted with stroke protocol. His mental status improved. c/o b/l knee pain, x-ray showed severe osteoarthritis. Patient was recommended outpatient follow-up for possible knee replacement. Patient was then discharged home with home health with outpatient follow-up in stable condition. Discharge diagnosis and management: / Acute encephalopathy, likely metabolic suspected acute CVA on admission Admitted with CVA Protocol: monitor telemetry, ordered CT head, MRI Brain/MRA Brain, Echo, Carotid doppler, Antiplatelet therapy, PT/OT/ Speech therapy, Case management consult for D/C planning/Placement, lipid panel, statin therapy. MRI brain showed no acute CVA , neuro recommended medical Mx PT recommended ANGELIC, pillowcase sewer was notified, but apparently patient used up all his rehabilitation days prior insurance. He was then discharged home with home health /Acute gout ? Osteoarthritis of b/l Knee Placed on clochicine, po steroid ordered b/l knee xry - showed moderate to severe osteoarthritis Patient advised to follow up outpatient orthopedic for possible knee replacement /SIRS (systemic inflammatory response syndrome), no source of infection w/o any cellulites likely from acute gout negative blood cx, off iv abx /h/o Pulmonary embolus Continue therapeutic anticoagulation with xarelto, No respiratory distress at time of exam. / Hyponatremia s/p IVF resuscitation therapy, resolved / DVT prophylaxis SCD to BLE while in bed, continue therapeutic anticoagulation. Disposition: [id number]/TX-06 HOME UNDER HOME HLTH Time spent for discharge: 34 minutes Core Measure Documentation - Palliative Care Palliative Care/ Comfort Measures: Not Applicable - Core Measures Any of the following diagnoses?: none Exam - Physical Exam Narrative exam: General appearance: Present: no acute distress, well-nourished - EENT Eyes: PERRL, EOM intact ENT: hearing intact, clear oral mucosa Ears: bilateral: normal - Neck Neck: supple, normal ROM - Respiratory Respiratory effort: normal Respiratory: bilateral: CTA - Cardiovascular Rhythm: regular Heart Sounds: Present: S1 & S2. Absent: gallop, rub Extremities: pulses intact, No edema, normal color, - Gastrointestinal General gastrointestinal: Present: soft, non-tender, non-distended, normal bowel sounds - Integumentary Integumentary: clear, warm, dry - Musculoskeletal Musculoskeletal: generalized weakness, other (b/l knee tenderness) - Neurologic Neurologic: CNII-XII intact, other (limited movement to b/l LE) - Psychiatric Psychiatric: cooperative - Allied health notes Allied health notes reviewed: nursing - Constitutional Vitals: Temp Pulse Resp BP Pulse Ox 97.8 F 72 16 135/69 98 10/09/18 07:47 10/09/18 10:00 10/09/18 10:00 10/09/18 09:00 10/09/18 10:00 Plan Activity: fall precautions Weight Bearing Status: Non-Weight Bearing Diet: low fat, low salt Durable Medical Equipment Needed Upon Discharge: [place]ling Additional Instructions: f/u with orthopedics for possible knee replacement outpt Follow up with: MANJIT SLAUGHTER MD [Primary Care Provider] - 3-5 Days
[2018-10-09 15:50] VITALS: BP 141/68
[2018-10-09] MEDS: PERCOCET 5/325 PO PRN (18:22)
== END 2018-10-09 18:45 | disposition home health service (06) | DRG 640 ==
LOC: ED 12:07 → 4A 16:20 → 2B-ACE 10-08 18:09
PROVIDERS: ADMIT Internal Medicine; ATTEND Internal Medicine
DX: E87.1 Hypo-osmolality and hyponatremia (principal); G93.41 Metabolic encephalopathy; R65.10 Systemic inflammatory response syndrome (SIRS) of non-infectious origin without acute organ dysfunction; L03.115 Cellulitis of right lower limb; M10.062 Idiopathic gout, left knee; M10.061 Idiopathic gout, right knee; D72.829 Elevated white blood cell count, unspecified; E87.2 Acidosis; M10.9 Gout, unspecified; Z86.711 Personal history of pulmonary embolism; Z82.49 Family history of ischemic heart disease and other diseases of the circulatory system
CPT/HCPCS: 36415; 70450; 70544; 70551; 71045; 80048; 80053; 81001; 82140; 82550; 82553; 82962; 84439; 84443; 84484; 85025; 85027; 85610; 85730; 87040; 93005; 93010; 93880; G0378; A9270-GY; J1956; J2405; J2543; J3246; J3370; J7030; J7040; J7512

== ENCOUNTER 2018-10-19 12:20 | Inpatient (IN) | payer MEDICARE ==
[2018-10-19] MEDS ORDERED: NACL 0.9% 500 ML 500 ML IV ONE (12:47)
[2018-10-19 13:39] LABS: Hematocrit 32.2 % (35.5-45.6); Hemoglobin 10.3 gm/dl (11.8-15.2); Mean Corpuscular HGB Conc 32 % (32-34); Mean Corpuscular Volume 88 fl (84-94); Platelet Count 442 K/mm3 (140-440); Red Blood Count 3.67 M/mm3 (3.65-5.03)
[2018-10-19 13:40] LABS: Red Cell Distribution Width 20.2 % (13.2-15.2)
[2018-10-19 13:49] LABS: INR 1.05 (0.87-1.13)
[2018-10-19 14:02] LABS: Alanine Aminotransferase 17 units/L (7-56); Albumin 3.6 g/dL (3.9-5); BUN/Creatinine Ratio 14; Blood Urea Nitrogen 17 mg/dL (9-20); Calcium 9.7 mg/dL (8.4-10.2); Hemolysis Index 20
--- NOTE | 2018-10-19 14:03 | XRay Report ---
PROCEDURE: XR CHEST 1V AP TECHNIQUE: AP chest HISTORY: possible Sepsis COMPARISONS: Chest x-ray October 04, 2018 FINDINGS: Trachea midline. Heart size top normal. No pneumothorax. No sizable effusion. No acute airspace disea se. No acute bony abnormality IMPRESSION: No acute pulmonary process. This document is electronically signed by Lyndon Simon MD., Oct 19 2018 02:02:05 PM ET
[2018-10-19] MEDS ORDERED: ROCEPHIN/NS 1 GM/50 ML 1 GM/50 ML BAG IV ONE (14:21)
[2018-10-19] MEDS ORDERED: TORADOL IV ONE (14:22)
[2018-10-19 14:32] LABS: Anisocytosis 1+; Basophils % (Manual) 0 % (0.0-1.8); Eosinophils % (Manual) 0 % (0.0-4.3); Platelet Estimate Consistent w Auto; Total Cells Counted 200
--- NOTE | 2018-10-19 15:06 | Emergency Department Report ---
HPI - General Chief Complaint: Pain General Time Seen by Provider: 10/19/18 14:04 - HPI HPI: 68-year-old male presents to the emergency department with complaint of left arm pain, mostly in the left wrist and elbow. He feels that it is a gout exacerbation. Patient has a past medical history of gout, osteoarthritis, previous pulmonary embolism. He has not taken anything for her symptoms prior to arrival. He presents with a low-grade fever but denies having any chills or sweats or signs such symptoms of fever. His primary care ph ysician is Dr. Gigi Caraballo. No recent travel or sick contacts at home. On top of having pain in the left arm, the patient also says that it is weak. He denies any headache, visual change, slurred speech or any other neurological deficits. The patient was just here about 2 weeks ago for a stroke workup. At that time the patient was here more for altered mental status and hallucinations. ED Past Medical Hx - Past Medical History Previous Medical History?: Yes Hx CVA: Yes Hx Pulmonary Embolism: Yes Hx Arthritis: Yes (gout) Additional medical history: GOUT, SIRS, DVT,cellulitis RLE. PE - Surgical History Past Surgical History?: No - Social History Smoking Status: Former Smoker Substance Use Type: None - Medications Home Medications: Home Medications Medication Instructions Recorded Confirmed Last Taken Type Allopurinol [Zyloprim] 300 mg PO QDAY 10/04/18 10/19/18 Unknown History Furosemide [Lasix] 20 mg PO DAILY 10/04/18 10/19/18 Unknown History Indomethacin [Indocin] 25 mg PO BID 10/04/18 10/19/18 Unknown History Pantoprazole [Protonix TAB] 40 mg PO QDAY 10/04/18 10/19/18 Unknown History Potassium 10 meq PO DAILY 10/04/18 10/19/18 Unknown History Rivaroxaban [Xarelto] 20 mg PO QDAY 10/04/18 10/19/18 Unknown History predniSONE [Prednisone] 5 mg PO DAILY 10/04/18 10/04/18 Unknown History ED Review of Systems ROS: Stated complaint: LFT LEG/LFT ARM/LFT FEET PAIN Other details as noted in HPI Comment: All other systems reviewed and negative Constitutional: denies: chills, diaphoresis Eyes: denies: eye pain, vision change ENT: denies: ear pain, throat pain Respiratory: denies: cough, shortness of breath Cardiovascular: denies: chest pain, palpitations Gastrointestinal: denies: abdominal pain, vomiting Genitourinary: denies: dysuria, discharge Musculoskeletal: arthralgia, myalgia Skin: denies: rash, lesions Neurological: weakness. denies: headache Physical Exam - Physical Exam Vital Signs: Vital Signs 10/19/18 10/19/18 12:26 12:37 Temperature 101.1 F H 99.6 F Pulse Rate 114 H Respiratory 18 Rate Blood Pressure 141/81 O2 Sat by Pulse 99 Oximetry Physical Exam: GENERAL: The patient is well-developed well-nourished. HENT: Normocephalic. Atraumatic. Patient has moist mucous membranes. EYES: Extraocular motions are intact. Pupils equal reactive to light bilaterally. NECK: Supple. Trachea is midline. CHEST/LUNGS: Clear to auscultation. There is no respiratory distress noted. HEART/CARDIOVASCULAR: Regular. There is mild to moderate tachycardia. There is no murmur. ABDOMEN: Abdomen is soft, nontender. Patient has normal bowel sounds. There is no abdominal distention. SKIN: There is some mild left upper extremity swelling. No erythema, warmth, fluctuance. NEURO: The patient is awake, alert, and oriented. The patient is cooperative. The patient has no focal neurologic deficits. The patient has normal speech. Cranial nerves II through XII grossly intact. MUSCULOSKELETAL: There is tenderness to palpation to the left upper extremity that is worst at the wrist and elbow. Decreased range of motion of the left upper extremity secondary to pain and alleged weakness. Radial pulse +2 over 4 and capillary refill less than 2 seconds to the affected left upper extremity. ED Course Vital Signs 10/19/18 10/19/18 12:26 12:37 Temperature 101.1 F H 99.6 F Pulse Rate 114 H Respiratory 18 Rate Blood Pressure 141/81 O2 Sat by Pulse 99 Oximetry ED Medical Decision Making - Lab Data Result diagrams: 10/19/18 13:22 10/19/18 13:22 - EKG Data -: EKG Interpreted by Me EKG shows normal: sinus rhythm, axis, intervals, QRS complexes (q waves to the septal leads), ST-T waves Rate: tachycardia (106 bpm) - EKG Data When compared to previous EKG there are: no significant change Interpretation: unchanged when compared t (10/04/18) - Radiology Data Radiology results: report reviewed, image reviewed interpreted by me: Chest x-ray does not show any acute process. There are no pleural effusions, obvious pneumonia and there is no pneumothorax. CT of the head without contrast shows extensive microvascular ischemic disease noted but no discernible acute infarction. No skull fracture, brain bleed, mass. CT angiography of the left upper extremity shows some soft tissue swelling but no discernible drainable fluid collection. Consider cellulitis. - Medical Decision Making This patient presents to the emergency department with complaint of left arm pain and some weakness that has been going on for the past day or so. However he also presents with a fever and some tachycardia so the patient had a CODE sepsis is initiated. He was given some Rocephin and Toradol. The patient thought it might be gout but his uric acid level was normal. Because of the weakness, a CT of the head without contrast was done but it did not show any bleed, shift, mass, ischemia, or any other acute process. The patient is a 1 on the NIH stroke scale secondary to his alleged weakness but it also may be secondary to the pain in his arm when he has movement. There also is no obvious last known well time and the patient is not a TPA candidate. The patient has a leukocytosis of about 20,000. A CT angiography of the left upper extremity was done that did not show any discernible fluid collection but does show some soft tissue swelling concerning for cellulitis. The patient will be admitted to the hospital for further evaluation and treatment and was accepted for admission by the hospitalist, Dr. Ford. - Differential Diagnosis cellulitis, gout, CVA, TIA Critical Care Time: No Critical care attestation.: If time is entered above; I have spent that time in minutes in the direct care of this critically ill patient, excluding procedure time. ED Disposition Clinical Impression: Left arm cellulitis, Left arm weakness, Left arm pain, SIRS (systemic inflammatory response syndrome) Leukocytosis Qualifiers: Leukocytosis type: unspecified Qualified Code(s): D72.829 - Elevated white blood cell count, unspecified Disposition: OP ADMIT IP TO THIS HOSP Is pt being admited?: Yes Condition: Fair Time of Disposition: 19:56
[2018-10-19 15:48] LABS: Uric Acid 5.2 mg/dL (3.5-7.6)
--- NOTE | 2018-10-19 16:43 | Cat Scan Report ---
EXAM: CT HEAD/BRAIN WO CON HISTORY: left arm weakness TECHNIQUE: Spiral axial CT images are obtained through the brain without the administration of intra venous contrast. COMPARISON: Head CT dated October 04, 2018 FINDINGS: There are parenchymal lucencies within the white matter tracks of the centrum semiovale, consistent w ith chronic sequela of atherosclerotic microvascular ischemic disease. There is atherosclerotic disea se of the carotid siphons. There is diffuse cerebral cortical atrophy. The centrum semiovale, basal ganglia, cerebellum, and bra instem are otherwise grossly unremarkable for a noncontrast CT scan. There is no acute intracranial hemorrhage, gross acute infarction, mass lesion, midline shift, or hydrocephalus seen. No extra-axia l mass or abnormal fluid collection noted. The calvarium is intact. The partially imaged paranasal sinuses, middle ear cavities and mastoid air cells are clear. IMPRESSION: 1. Extensive chronic microvascular ischemic disease noted, but no discernible acute infarction seen. Note that small or subtle acute infarctions can be obscured in this radiologic setting. Clinical cor relation is advised. Consider followup MRI with diffusion-weighted imaging to rule out occult acute i nfarction as clinically warranted. 2. Atherosclerotic disease of the carotid siphons. 3. No skull fracture, intracranial hemorrhage, mass lesion, midline shift, or hydrocephalus seen. This document is electronically signed by Rosa Bellamy MD., Oct 19 2018 04:41:54 PM ET
--- NOTE | 2018-10-19 17:06 | History and Physical Report ---
History of Present Illness Chief complaint: My arm is red, and it hurts History of present illness: 68 YO Male with CVA, PE on Therapeutic Anticoagulation, OA, Gout presents to ED for evaluation. Pt states that he has experienced pain and redness to his left arm over the past 4 days with persistent symptoms over the same time frame. Pt acknowledges subjective fever. Pt also reports that his arm is tender to the touch. Pt transported to [facility] via private vehicle. Pt seen and evaluated in ED and found to have LUE Cellulitis complicated by SIRS as well as Fever to 101.1, and leukocytosis. Pt admitted to [facility] and initiated on IV antibiotic therpay. Pt denies chills, CP, Palpitations, NVD, Trauma, BRBPR, Productive cough, unintentional weight loss, night sweats, noncompliance with medication, neck pain, or recent ill contacts. Pt underwent CT Angio LUE which was consistent with cellulitis. Pt Ulnar/radial/ brachial pulses 2+, = bilaterally. Prior admission on 10/04/18 reviewed. All listed medication reconciled at time of admission. Past History Past Medical History: pulmonary embolism, stroke, other (Gout) Past Surgical History: No surgical history, Other (reviewed) Social history: single. denies: smoking, alcohol abuse, prescription drug abuse Family history: no significant family history (reviewed) Medications and Allergies Allergies Allergy/AdvReac Type Severity Reaction Status Date / Time No Known Allergies Allergy Unverified 10/04/18 12:16 Home Medications Medication Instructions Recorded Confirmed Last Taken Type Allopurinol [Zyloprim] 300 mg PO QDAY 10/04/18 10/19/18 Unknown History Furosemide [Lasix] 20 mg PO DAILY 10/04/18 10/19/18 Unknown History Indomethacin [Indocin] 25 mg PO BID 10/04/18 10/19/18 Unknown History Pantoprazole [Protonix TAB] 40 mg PO QDAY 10/04/18 10/19/18 Unknown History Potassium 10 meq PO DAILY 10/04/18 10/19/18 Unknown History Rivaroxaban [Xarelto] 20 mg PO QDAY 10/04/18 10/19/18 Unknown History predniSONE [Prednisone] 5 mg PO DAILY 10/04/18 10/04/18 Unknown History Review of Systems Constitutional: fever, no weight loss, no weight gain, no chills, no sweats Ears, nose, mouth and throat: no ear pain, no ear discharge, no tinnitis, no decreased hearing, no nose pain Cardiovascular: no chest pain, no orthopnea, no palpitations, no edema, no sy ncope Respiratory: no cough, no cough with sputum, no excessive sputum, no hemoptysis Gastrointestinal: no abdominal pain, no nausea, no vomiting, no diarrhea, no constipation Genitourinary Male: no hematuria, no flank pain, no discharge, no urinary frequency, no urinary hesitancy Rectal: no pain, no incontinence, no bleeding Musculoskeletal: no neck stiffness, no neck pain, no shooting arm pain, no arm numbness/tingling, no low back pain, no shooting leg pain Integumentary: redness, other (Left arm), no rash, no pruritis, no sores, no wounds Neurological: no paralysis, no weakness, no parathesias, no numbness, no tin gling, no seizures Psychiatric: no anxiety, no memory loss, no change in sleep habits, no sleep disturbances, no insomnia, no hypersomnia, no change in appetite, no suicidal i deation Endocrine: no cold intolerance, no heat intolerance, no excessive thirst, no polyuria, no excessive sweating Hematologic/Lymphatic: no easy bruising, no easy bleeding Allergic/Immunologic: no urticaria, no allergic rhinitis, no wheezing, no persistent infections, no anaphylaxis, no angioedema Exam - Constitutional Vitals: Temp Pulse Resp BP Pulse Ox 99.6 F 114 H 18 141/81 99 10/19/18 12:37 10/19/18 12:26 10/19/18 12:26 10/19/18 12:26 10/19/18 12:26 General appearance: Present: mild distress - EENT Eyes: Present: PERRL ENT: hearing intact, clear oral mucosa - Neck Neck: Present: supple, normal ROM - Respiratory Respiratory effort: normal Respiratory: bilateral: CTA - Cardiovascular Heart Sounds: Present: S1 & S2. Absent: rub, click - Extremities Extremities: pulses symmetrical, abnormal Extremity abnormal: edema, erythema, tenderness, other (LUE ) Peripheral Pulses: within normal limits - Abdominal General gastrointestinal: Present: soft, non-tender, non-distended, normal bowel sounds Male genitourinary: Present: normal - Integumentary Integumentary: Present: clear, warm, dry - Musculoskeletal Musculoskeletal: gait normal, strength equal bilaterally - Psychiatric Psychiatric: appropriate mood/affect, intact judgment & insight - Neurologic Neurologic: CNII-XII intact, moves all extremities Results - Labs CBC & Chem 7: 10/19/18 13:22 10/19/18 13:22 Labs: Abnormal lab results 10/19/18 10/19/18 10/19/18 Range/Units 13:22 13:22 13:22 WBC 20.5 H (4.5-11.0) K/mm3 Hgb 10.3 L (11.8-15.2) gm/dl Hct 32.2 L (35.5-45.6) % RDW 20.2 H (13.2-15.2) % Plt Count 442 H (140-440) K/mm3 Seg Neuts % (Manual) 92.5 H (40.0-70.0) % Lymphocytes % (Manual) 3.5 L (13.4-35.0) % Seg Neutrophils # Man 19.0 H (1.8-7.7) K/mm3 Lymphocytes # (Manual) 0.7 L (1.2-5.4) K/mm3 Sodium 136 L (137-145) mmol/L Chloride 96.9 L (98-107) mmol/L Glucose 164 H (75-100) mg/dL Lactic Acid 2.80 H* (0.7-2.0) mmol/L Albumin 3.6 L (3.9-5) g/dL Assessment and Plan - Patient Problems (1) Left arm cellulitis Current Visit: Yes Status: Acute Plan to address problem: CBC, CMP, CT Angio LUE, pain control, IV antibiotic therapy, am CBC. (2) SIRS (systemic inflammatory response syndrome) Current Visit: Yes Status: Acute Plan to address problem: IV antibiotic therapy, Chest x ray, urinalysis, CBC, CMP, CTA LUE to evaluated for cellulitis or evidence of compartment syndrome. (3) Hyponatremia syndrome Current Visit: No Status: Acute Plan to address problem: IVF resuscitation therapy, repeat bmp in am. (4) Pulmonary embolus Current Visit: No Status: Acute Qualifiers: Chronicity: unspecified Acute cor pulmonale presence: without acute cor pul monale Plan to address problem: Continue therapeutic anticoagulation, (5) DVT prophylaxis Current Visit: No Status: Acute Plan to address problem: SCD to BLE while in bed, continue therapeutic anticoagulation
[2018-10-19] MEDS ORDERED: SODIUM CHLORIDE FLUSH SYRINGE 10 ML IV PRN (17:16)
[2018-10-19] MEDS ORDERED: ZOFRAN IV PRN (17:16)
[2018-10-19] MEDS ORDERED: PROVENTIL IH PRN (17:16)
[2018-10-19] MEDS ORDERED: TYLENOL PO PRN (17:16)
--- NOTE | 2018-10-19 18:53 | Cat Scan Report ---
PROCEDURE: CT ANGIO UPPER EXTREMITY LT TECHNIQUE: CTA of the left upper extremity obtained. HISTORY: pain, and swelling. COMPARISONS: None FINDINGS: Soft tissue swelling seen of the left upper extremity, correlate for cellulitis. No drainable fluid c ollections visualized. The left subclavian artery, axillary artery, brachial artery are patent. Osseous structures are intact. Moderate degenerative changes of the left elbow noted. Muscles appear grossly unremarkable. IMPRESSION: Soft tissue swelling seen of the left upper extremity, correlate for cellulitis. No drainable fluid c ollections visualized.. This document is electronically signed by Beena Mallory MD., Oct 19 2018 06:51:08 PM ET
[2018-10-19 19:52] LABS: Bacteria,Urine 1+ /HPF (Negative); Bilirubin,Urine NEG (Negative); Blood,Urine NEG (Negative); Color,Urine Yellow (Yellow); Mucus,Urine FEW /HPF; Protein,Urine <15 mg/dL mg/dL (Negative)
[2018-10-19 19:53] LABS: WBC,Urine < 1.0 /HPF (0.0-6.0)
[2018-10-19] MEDS ORDERED: VANCOMYCIN 1,250 MG in NACL 0.9% 250ML 250 ML IV ONE (21:00)
[2018-10-19] MEDS ORDERED: VANCOMYCIN PHARMACY TO DOSE IV SCH (21:00)
[2018-10-19] MEDS: PEPCID PO SCH (22:10)
[2018-10-19] MEDS: SODIUM CHLORIDE FLUSH SYRINGE 10 ML IV SCH (22:10)
[2018-10-19] MEDS: INDOCIN PO SCH (22:28)
[2018-10-20] MEDS ORDERED: LASIX PO SCH (06:00)
--- NOTE | 2018-10-20 07:53 | Progress Note ---
Assessment and Plan Assessment and plan: Patient is a 68 YO Male with CVA, PE on Therapeutic Anticoagulation, OA, Gout presents to ED for evaluation. Pt states that he has experienced pain and redness to his left arm over the past 4 days with persistent symptoms over the same time frame. Pt acknowledges subjective fever. Pt also reports that his arm is tender to the touch. Pt transported to [facility] via private vehicle. Pt seen and evaluated in ED and found to have LUE Cellulitis complicated by SIRS as well as Fever to 101.1, and leukocytosis. Pt admitted to [facility] and initiated on IV antibiotic therpay. Pt denies chills, CP, Palpitations, NVD, Trauma, BRBPR, Productive cough, unintentional weight loss, night sweats, noncompliance with medication, neck pain, or recent ill contacts. Pt underwent CT Angio LUE which was consistent with cellulitis. Pt Ulnar/radial/ brachial pulses 2+, = bilaterally. Prior admission on 10/04/18 reviewed. All listed medication reconciled at time of admission. CTA LUE: Consistent with cellulitis CT Head: Extensive chronic microvasclar ischemic disease with no acute infarct. Sepsis secondary to Left Upper arm cellulites Left Arm Cellulitis Hyponatremia Gout- with acute exacerbation Pulmonary Emboli diagnosed... CVA per hx Plan: Continue supportive care Follow cultures continue abx, add CEFAZOLIN, Can deescalated in am if no clear evidence of MRSA Continue oral AC meds Will give a higher dose steroids, and continue home dose from tomorrow. Pain control. DVT/GI prophy Discharge when clinical improved Am labs Plan discussed with patient History Interval history: Patient seen and examined, Remains with left arm pain but improved swelling. He denies any fever, nausea, vomiting. Hospitalist Physical - Physical exam Narrative exam: General appearance: Present: mild distress - EENT Eyes: Present: PERRL ENT: hearing intact, clear oral mucosa - Neck Neck: Present: supple, normal ROM - Respiratory Respiratory effort: normal Respiratory: bilateral: CTA - Cardiovascular Heart Sounds: Present: S1 & S2. Absent: rub, click - Extremities Extremities: pulses symmetrical, abnormal Extremity abnormal: edema, erythema, tenderness, other (LUE ) swelling noted in the left elbow. Peripheral Pulses: within normal limits - Abdominal General gastrointestinal: Present: soft, non-tender, non-distended, normal bowel sounds Male genitourinary: Present: normal - Integumentary Integumentary: Present: clear, warm, dry - Musculoskeletal Musculoskeletal: gait normal, strength equal bilaterally - Psychiatric Psychiatric: appropriate mood/affect, intact judgment & insight - Neurologic Neurologic: CNII-XII intact, moves all extremities - Constitutional Vitals: Temp Pulse Resp BP Pulse Ox 98.9 F 83 20 124/71 93 10/20/18 02:15 10/20/18 02:15 10/20/18 02:15 10/20/18 02:15 10/20/18 02:15 General appearance: Present: mild distress Results - Labs CBC & Chem 7: 10/19/18 13:22 10/19/18 13:22 Labs: Laboratory Last Values WBC 20.5 K/mm3 (4.5-11.0) H 10/19/18 13:22 RBC 3.67 M/mm3 (3.65-5.03) 10/19/18 13:22 Hgb 10.3 gm/dl (11.8-15.2) L 10/19/18 13:22 Hct 32.2 % (35.5-45.6) L 10/19/18 13:22 MCV 88 fl (84-94) 10/19/18 13:22 MCH 28 pg (28-32) 10/19/18 13:22 MCHC 32 % (32-34) 10/19/18 13:22 RDW 20.2 % (13.2-15.2) H 10/19/18 13:22 Plt Count 442 K/mm3 (140-440) H 10/19/18 13:22 Add Manual Diff Complete 10/19/18 13:22 Total Counted 200 10/19/18 13:22 Seg Neuts % (Manual) 92.5 % (40.0-70.0) H 10/19/18 13:22 Band Neutrophils % 0 % 10/19/18 13:22 Lymphocytes % (Manual) 3.5 % (13.4-35.0) L 10/19/18 13:22 Reactive Lymphs % (Man) 0 % 10/19/18 13:22 Monocytes % (Manual) 4.0 % (0.0-7.3) 10/19/18 13:22 Eosinophils % (Manual) 0 % (0.0-4.3) 10/19/18 13:22 Basophils % (Manual) 0 % (0.0-1.8) 10/19/18 13:22 Metamyelocytes % 0 % 10/19/18 13:22 Myelocytes % 0 % 10/19/18 13:22 Promyelocytes % 0 % 10/19/18 13:22 Blast Cells % 0 % 10/19/18 13:22 Nucleated RBC % Not Reportable 10/19/18 13:22 Seg Neutrophils # Man 19.0 K/mm3 (1.8-7.7) H 10/19/18 13:22 Band Neutrophils # 0.0 K/mm3 10/19/18 13:22 Lymphocytes # (Manual) 0.7 K/mm3 (1.2-5.4) L 10/19/18 13:22 Abs React Lymphs (Man) 0.0 K/mm3 10/19/18 13:22 Monocytes # (Manual) 0.8 K/mm3 (0.0-0.8) 10/19/18 13:22 Eosinophils # (Manual) 0.0 K/mm3 (0.0-0.4) 10/19/18 13:22 Basophils # (Manual) 0.0 K/mm3 (0.0-0.1) 10/19/18 13:22 Metamyelocytes # 0.0 K/mm3 10/19/18 13:22 Myelocytes # 0.0 K/mm3 10/19/18 13:22 Promyelocytes # 0.0 K/mm3 10/19/18 13:22 Blast Cells # 0.0 K/mm3 10/19/18 13:22 WBC Morphology Not Reportable 10/19/18 13:22 Hypersegmented Neuts Not Reportable 10/19/18 13:22 Hyposegmented Neuts Not Reportable 10/19/18 13:22 Hypogranular Neuts Not Reportable 10/19/18 13:22 Smudge Cells Not Reportable 10/19/18 13:22 Toxic Granulation Not Reportable 10/19/18 13:22 Toxic Vacuolation Not Reportable 10/19/18 13:22 Dohle Bodies Not Reportable 10/19/18 13:22 Pelger-Huet Anomaly Not Reportable 10/19/18 13:22 Carmelo Rods Not Reportable 10/19/18 13:22 Platelet Estimate Consistent w auto 10/19/18 13:22 Clumped Platelets Not Reportable 10/19/18 13:22 Plt Clumps, EDTA Not Reportable 10/19/18 13:22 Large Platelets Not Reportable 10/19/18 13:22 Giant Platelets Not Reportable 10/19/18 13:22 Platelet Satelliting Not Reportable 10/19/18 13:22 Plt Morphology Comment Not Reportable 10/19/18 13:22 RBC Morphology Not Reportable 10/19/18 13:22 Dimorphic RBCs Not Reportable 10/19/18 13:22 Polychromasia Not Reportable 10/19/18 13:22 Hypochromasia Not Reportable 10/19/18 13:22 Poikilocytosis Not Reportable 10/19/18 13:22 Anisocytosis 1+ 10/19/18 13:22 Microcytosis Not Reportable 10/19/18 13:22 Macrocytosis Not Reportable 10/19/18 13:22 Spherocytes Not Reportable 10/19/18 13:22 Pappenheimer Bodies Not Reportable 10/19/18 13:22 Sickle Cells Not Reportable 10/19/18 13:22 Target Cells Not Reportable 10/19/18 13:22 Tear Drop Cells Not Reportable 10/19/18 13:22 Ovalocytes Not Reportable 10/19/18 13:22 Helmet Cells Not Reportable 10/19/18 13:22 Otero-Murdo Bodies Not Reportable 10/19/18 13:22 [place] Rings Not Reportable 10/19/18 13:22 Earl Cells Not Reportable 10/19/18 13:22 Bite Cells Not Reportable 10/19/18 13:22 Crenated Cell Not Reportable 10/19/18 13:22 Elliptocytes Not Reportable 10/19/18 13:22 Acanthocytes (Spur) Not Reportable 10/19/18 13:22 Rouleaux Not Reportable 10/19/18 13:22 Hemoglobin C Crystals Not Reportable 10/19/18 13:22 Schistocytes Not Reportable 10/19/18 13:22 Malaria parasites Not Reportable 10/19/18 13:22 Jamil Bodies Not Reportable 10/19/18 13:22 Hem Pathologist Commnt No 10/19/18 13:22 PT 14.3 Sec. (12.2-14.9) 05/05/19 13:22 INR 1.05 (0.87-1.13) 10/19/18 13:22 VBG pH 7.356 (7.320-7.420) 10/19/18 13:22 Sodium 136 mmol/L (137-145) L 10/19/18 13:22 Potassium 4.3 mmol/L (3.6-5.0) 10/19/18 13:22 Chloride 96.9 mmol/L (98-107) L 10/19/18 13:22 Carbon Dioxide 22 mmol/L (22-30) 10/19/18 13:22 Anion Gap 21 mmol/L 10/19/18 13:22 BUN 17 mg/dL (9-20) 10/19/18 13:22 Creatinine 1.2 mg/dL (0.8-1.5) 10/19/18 13:22 Estimated GFR > 60 ml/min 10/19/18 13:22 BUN/Creatinine Ratio 14 % 10/19/18 13:22 Glucose 164 mg/dL (75-100) H 10/19/18 13:22 Lactic Acid 1.50 mmol/L (0.7-2.0) 10/19/18 15:24 Uric Acid 5.2 mg/dL (3.5-7.6) 10/19/18 14:28 Calcium 9.7 mg/dL (8.4-10.2) 10/19/18 13:22 Total Bilirubin 0.90 mg/dL (0.1-1.2) 10/19/18 13:22 AST 11 units/L (5-40) 10/19/18 13:22 ALT 17 units/L (7-56) 10/19/18 13:22 Alkaline Phosphatase 93 units/L (35-129) 10/19/18 13:22 NT-Pro-B Natriuret Pep 170.4 pg/mL (0-900) 10/19/18 14:28 Total Protein 7.7 g/dL (6.3-8.2) 10/19/18 13:22 Albumin 3.6 g/dL (3.9-5) L 10/19/18 13:22 Albumin/Globulin Ratio 0.9 % 10/19/18 13:22 Urine Color Yellow (Yellow) 10/19/18 Unknown Urine Turbidity Clear (Clear) 10/19/18 Unknown Urine pH 5.0 (5.0-7.0) 10/19/18 Unknown Ur Specific [place] 1.015 (1.003-1.030) 10/19/18 Unknown Urine Protein <15 mg/dl mg/dL (Negative) 10/19/18 Unknown Urine Glucose (UA) Neg mg/dL (Negative) 10/19/18 Unknown Urine Ketones Neg mg/dL (Negative) 10/19/18 Unknown Urine Blood Neg (Negative) 10/19/18 Unknown Urine Nitrite Neg (Negative) 10/19/18 Unknown Urine Bilirubin Neg (Negative) 10/19/18 Unknown Urine Urobilinogen 2.0 mg/dL (<2.0) 10/19/18 Unknown Ur Leukocyte Esterase Neg (Negative) 10/19/18 Unknown Urine WBC (Auto) < 1.0 /HPF (0.0-6.0) 10/19/18 Unknown Urine RBC (Auto) 1.0 /HPF (0.0-6.0) 10/19/18 Unknown U Epithel Cells (Auto) 1.0 /HPF (0-13.0) 10/19/18 Unknown Urine Bacteria (Auto) 1+ /HPF (Negative) 10/19/18 Unknown Urine Mucus Few /HPF 10/19/18 Unknown Active Medications - Current Medications Current Medications: Generic Name Dose Route Start Last Admin Trade Name Freq PRN Reason Stop Dose Admin Acetaminophen 650 mg 10/19/18 17:16 Tylenol PO Q4H PRN Pain MILD(1-3)/Fever >100.5/NG Albuterol 2.5 mg 10/19/18 17:16 Proventil IH Q4HRT PRN Shortness Of Breath Allopurinol 300 mg 10/20/18 10:00 Zyloprim PO QDAY ROSSANA Famotidine 20 mg 10/19/18 22:00 10/19/18 22:10 Pepcid PO 20 mg BID ROSSANA Administration Furosemide 20 mg 10/20/18 06:00 10/20/18 05:51 Lasix PO 20 mg DAILY@0600 ROSSANA Administration Vancomycin HCl 1 gm in 250 mls @ 167.007 mls/hr 10/20/18 21:00 Vancomycin/Ns 1 Gm/250 Ml IV Q24H [facility] Protocol Indomethacin 25 mg 10/19/18 22:00 10/19/18 22:28 Indocin PO 25 mg BID ROSSANA Administration Ondansetron HCl 4 mg 10/19/18 17:16 10/19/18 23:00 Zofran IV 4 mg Q8H PRN Administration Nausea And Vomiting Pantoprazole Sodium 40 mg 10/20/18 10:00 Protonix PO QDAY [facility] Potassium Chloride 10 meq 10/20/18 10:00 K-Dur PO QDAY [facility] Prednisone 5 mg 10/20/18 08:00 Deltasone PO DAILY@0800 [facility] Rivaroxaban 20 mg 10/20/18 10:00 Xarelto PO QDAY [facility] Protocol Sodium Chloride 10 ml 10/19/18 22:00 10/19/18 22:10 Sodium Chloride Flush Syringe 10 Ml IV 10 ml BID ROSSANA Administration Sodium Chloride 10 ml 10/19/18 17:16 Sodium Chloride Flush Syringe 10 Ml IV PRN PRN LINE FLUSH
[2018-10-20] MEDS ORDERED: MORPHINE IV PRN (08:00)
[2018-10-20] MEDS: DELTASONE PO SCH (08:21)
[2018-10-20] MEDS: INDOCIN PO SCH ×2 (09:57→21:02)
[2018-10-20] MEDS: XARELTO PO SCH (09:58)
[2018-10-20] MEDS: ZYLOPRIM PO SCH (10:00)
[2018-10-20] MEDS: PROTONIX PO SCH (10:00)
[2018-10-20] MEDS ORDERED: NON-FORMULARY (Potassium 10 MEQ) PO SCH (10:00)
[2018-10-20] MEDS: K-DUR PO SCH (10:01)
[2018-10-20] MEDS: PEPCID PO SCH ×2 (10:01→21:02)
[2018-10-20] MEDS: ANCEF/NS 1 GM/50 ML 1 GM/50 ML BAG IV SCH ×3 (10:04→21:02)
[2018-10-20] MEDS: SODIUM CHLORIDE FLUSH SYRINGE 10 ML IV SCH ×2 (10:05→21:02)
[2018-10-20] MEDS: SOLU-Medrol IV SCH (16:23)
[2018-10-20] MEDS ORDERED: VANCOMYCIN/NS 1 GM/250 ML 1 GM/250 ML BAG IV SCH (21:00)
[2018-10-21] MEDS: SOLU-Medrol IV SCH (01:07)
[2018-10-21 08:35] LABS: Calcium 8.7 mg/dL (8.4-10.2)
[2018-10-21] MEDS: DELTASONE PO SCH (08:55)
[2018-10-21 08:58] LABS: Mean Corpuscular HGB Conc 31 % (32-34); Mean Corpuscular Volume 87 fl (84-94); Platelet Count 257 K/mm3 (140-440); Red Blood Count 4.84 M/mm3 (3.65-5.03)
[2018-10-21 09:05] LABS: Hemoglobin 12.9 gm/dl (11.8-15.2); Red Cell Distribution Width 20.2 % (13.2-15.2)
[2018-10-21] MEDS: PROTONIX PO SCH (10:24)
[2018-10-21] MEDS: K-DUR PO SCH (10:24)
[2018-10-21] MEDS: ZYLOPRIM PO SCH (10:24)
[2018-10-21] MEDS: PEPCID PO SCH (10:24)
[2018-10-21] MEDS: INDOCIN PO SCH (10:25)
[2018-10-21] MEDS: XARELTO PO SCH (10:25)
[2018-10-21] MEDS: SODIUM CHLORIDE FLUSH SYRINGE 10 ML IV SCH (10:25)
--- NOTE | 2018-10-21 11:56 | Discharge Summary ---
Providers - Providers Date of Admission: 10/19/18 17:16 Date of discharge: 10/21/18 Attending physician: JIM AREVALO [facility] Condition: Stable Hospital course: Patient is a 68 yo man with a history of with CVA, PE on Therapeutic Anticoagulation/Xarelto, OA and Gout who presented to [facility] ED with left arm swel ling, fevers of 101.1F and WBC of 20.5. He was diagnosis with sepsis from LUE cellulitis. * CTA left upper extremity IMPRESSION: Soft tissue swelling seen of the left upper extremity, correlate for cellulitis. No drainable fluid collections visualized.. * CT head wo contrast IMPRESSION: 1. Extensive chronic microvascular ischemic disease noted, but no discernible acute infarction seen. Note that small or subtle acute infarctions can be obscured in this radiologic setting. Clinical correlation is advised. Consider followup MRI with diffusion-weighted imaging to rule out occult acute infarction as clinically warranted. 2. Atherosclerotic disease of the carotid siphons. 3. No skull fracture, intracranial hemorrhage, mass lesion, midline shift, or hydrocephalus seen. * pCXR reported no acute findings Discharge Diagnoses: Sepsis secondary to Left Upper arm cellulites Left Arm Cellulitis Hyponatremia Gout- with acute exacerbation Pulmonary Emboli by history of Xarelto CVA per hx Disposition: DC-01 TO HOME OR SELFCARE Time spent for discharge: 33 minutes Core Measure Documentation - Palliative Care Palliative Care/ Comfort Measures: Not Applicable - Core Measures Any of the following diagnoses?: DVT/PE, history only - VTE Discharge Requirements Deep Vein Thrombosis/Pulmonary Embolism Present on Admission: Yes Has pt received <5 days of overlap therapy or INR<2.0: No (on Xarelto) Anticoagulant overlap therapy prescribed at discharge: No Contraindication No Overlap Therapy order at DC: Not Indicated Exam - Physical Exam Narrative exam: Gen: WDWN, NAD, Awake, Alert, Orientated HEENT: NCAT, EOMI, PERRL, OP Clear Neck: supple, no adenopathy, no thyromegaly, no JVD CVS/Heart: RRR, normal S1S2, pulses present bilaterally Chest/Lungs: CTA B, Symmetrical chest expansion, good air entry bilaterally GI/Abdomen: soft, NTND, good bowel sounds, no guarding or rebound /Bladder: no suprapubic tenderness, no CVA or paraspinal tenderness Extermity/Skin: no obvious rash, edema, erythema, tenderness, other (LUE ) swelling noted in the left elbow. MSK: FROM x 4 Neuro: CN 2-12 grossly intact, no new focal deficits Psych: calm - Constitutional Vitals: Temp Pulse Resp BP Pulse Ox 98.8 F 80 18 151/75 98 10/21/18 08:06 10/21/18 08:06 10/21/18 08:06 10/21/18 08:06 10/21/18 09:55 Plan Activity: other (no strenous activity unless cleared by PCP) Diet: low salt Follow up with: DENA ROSSWAUBUN MD CHIDI [Primary Care Provider] - 3-5 Days MANUEL SETH MD [Staff Physician] - 14 Days Prescriptions: cefUROXime [Ceftin] 500 mg PO BID #10 tablet
[2018-10-21 14:33] VITALS: BP 142/61
[2018-10-21] MEDS: ANCEF/NS 1 GM/50 ML 1 GM/50 ML BAG IV SCH ×2 (14:48)
== END 2018-10-21 17:15 | disposition home health service (06) | DRG 872 ==
LOC: ED 12:20 → 2B-ACE 17:16
PROVIDERS: ADMIT Internal Medicine; ATTEND Internal Medicine
DX: A41.9 Sepsis, unspecified organism (principal); E87.1 Hypo-osmolality and hyponatremia; L03.114 Cellulitis of left upper limb; M19.90 Unspecified osteoarthritis, unspecified site; M10.9 Gout, unspecified; Z86.73 Personal history of transient ischemic attack (TIA), and cerebral infarction without residual deficits; Z86.711 Personal history of pulmonary embolism; Z79.01 Long term (current) use of anticoagulants; Z79.899 Other long term (current) drug therapy; Z86.718 Personal history of other venous thrombosis and embolism
CPT/HCPCS: 36415; 70450; 71045; 80048; 80053; 81001; 82140; 82805; 83880; 84550; 85007; 85025; 85027; 85610; 87040; 87086; 93005; 93010; G0378; J0690; J0696; J1885; J2270; J2405; J2920; J3370; J7040; J7050; J7512; Q9967